=== PATIENT | male | born 1940 | race Caucasian/White ===

== ENCOUNTER 2017-05-22 04:22 | Inpatient (IN) | payer MEDICARE ==
[~2017-05-22] VITALS: Ht 175.3 cm; Wt 72.8 kg
[2017-05-22] VITALS (9 sets, daily range): BP systolic 123–148; BP diastolic 65–90; PULSE 70–95; RESP 16–21; TEMP 97.9–98.7; O2SAT 95–100
[~2017-05-22 04:22] MED LIST: ALBU8I INH; B-12500T3 PO; CALCCHW25 PO; CO Q PO; D32000CA PO; DOXA1 PO; GUAI1SOL PO; MIRA25TA PO; OXYC1SOL5 PO; PROT40TA PO; SPIRCAP INH; SYMB80AE INH; SYNT175T PO; TOLT1TAB PO
[2017-05-22] MEDS ORDERED: SODIUM CHLOR 0.9% 1000 ML INJ 1,000 ML IV SCH (04:28)
[2017-05-22] MEDS ORDERED: SODIUM CHLORIDE 0.9% FLUSH 10 ML FLUSH IV FLUSH PRN ×2 (04:30→08:30)
[2017-05-22] MEDS ORDERED: HYDR50TA94 PO (04:43)
[2017-05-22] MEDS ORDERED: METF500T PO (04:43)
[2017-05-22] MEDS ORDERED: BENZ1CAP54 PO (04:43)
[2017-05-22] MEDS ORDERED: LEVO125T4 PO (04:43)
[2017-05-22] MEDS ORDERED: ALLO300T2 PO (04:43)
--- NOTE | 2017-05-22 04:43 | PD ---
HPI Chief Complaint: altered mentation Time Seen by Provider: 04:28 Travel History International Travel<30 days: No Contact w/Intl Traveler<30days: No History of Present Illness HPI The patient is a 76 year old male who presents to the [facility] emergency department with a history of reportedly awakening his just prior to arrival with a coughing spell. She then noticed that he was confused. The patient seemed disoriented. She called ambulance services. Upon ambulance services arrival, the patient did appear to be confused he was attempting to eat this sheet and pull out his IV in route to this facility. He was repeatedly falling back to sleep during his evaluation and making incoherent statements. When he was awakened and able to make eye contact he does report that he was dreaming. He reports that he did take Ambien this evening prior to going to bed. He reports that he did have one beer this evening. The patient had no focal findings noted by ambulance services prior to arrival to suggest stroke. The patient was last seen normal prior to going to bed. Review of systems is limited in this patient as he is confused on arrival. He has difficulty staying awake to answer questions. The patient's arrived at his bedside and reports that he has over the last week had a cough with congestion. She reports that he has a history of COPD. He went to see his primary care physician at the [facility] and at that point, no specific treatment was recommended. His reports that over the last week he has had little to no appetite. He has also had intermittent nausea and vomiting. She denies him having any diarrhea. She reports that he does have a history of posttraumatic stress disorder and he may have taken a Xanax prior to going to bed due to the fireworks. [facility] Past Medical History Narrative Medical The patient's past medical history is obtained through the electronic medical record and further discussion with the patient's and consists of COPD, insomnia, anxiety and depression, history of arthritis, diabetes mellitus, posttraumatic stress disorder. Arthritis: Yes Asthma: No Autoimmune Disease: No Blood Disorders: No Anxiety: Yes Depression: Yes Heart Rhythm Problems: No Cancer: Yes (SKIN CA) Cardiovascular Problems: Yes High Cholesterol: No Chemotherapy: No Chest Pain: No Congestive Heart Failure: No COPD: Yes Cerebrovascular Accident: No Diabetes: Yes Diminished Hearing: No Endocrine: Yes (DIABETES--diet controlled Agent [place] induced ) Gastrointestinal Disorders: Yes GERD: Yes Genitourinary: Yes Hiatal Hernia: Yes Hypertension: Yes Immune Disorder: No Inguinal Hernia: Yes Kidney Stones: No Musculoskeletal: No Neurologic: Yes (tremors) Psychiatric: Yes (PTSD) Reproductive: No Respiratory: Yes (COPD) Migraines: No Pneumonia: Yes Radiation Therapy: No Renal Failure: No Seizures: No Sickle Cell Disease: No Sleep Apnea: No Thyroid Disease: Yes Ulcer: No Past Surgical History Narrative Surgical The patient's past surgical history is significant for a hernia repair 3, tonsil and adenoidectomy, vasectomy, cataract surgery. Abdominal Surgery: Yes (HERNIA) AICD: No Arteriovenous Shunt: No Cardiac Surgery: No Ear Surgery: No Endocrine Surgery: No Eye Surgery: Yes (CATARACTS) Genitourinary Surgery: Yes (vasectomy) Gynecologic Surgery: No Insulin Pump: No Joint Replacement: No Neurologic Surgery: No Oral Surgery: No Pacemaker: No Thoracic Surgery: No Tonsillectomy: Yes (T/A) Other Surgery: Yes (HERNIA REPAIR x 3, T&A, vasectomy,wisdom teeth extraction) Social History Alcohol Use: Yes (BEER A DAY ) Tobacco Use: No Substance Use: Yes (MARIJUANA) Allergies-Medications (Allergen,Severity, Reaction): Coded Allergies: chlorpromazine (Unverified Allergy, Unknown, 01/03/17) prochlorperazine (Unverified Allergy, Unknown, 01/03/17) Reported Meds & Prescriptions Reported Meds & Active Scripts Active Reported Breo Ellipta Inh (Fluticasone/Vilanterol) 100-25 Mcg/Act Inh 1 Puff INH DAILY Use daily at the same time. Incruse Ellipta Inh (Umeclidinium [place] Inh) 0.0625 Mg/Act Inh 62.5 Mcg INH DAILY Virtussin A-C Liq (Guaifenesin-Codeine Liq) 100-10 Mg/5 Ml Soln 5 Ml PO Q4H PRN Zolpidem (Zolpidem Tartrate) 10 Mg Tab 10 Mg PO HS PRN Promethazine (Promethazine HCl) 12.5 Mg Tab 25 Mg PO Q12HR PRN Doxazosin (Doxazosin Mesylate) 4 Mg Tab 4 Mg PO DAILY Myrbetriq (Mirabegron) 50 Mg Tab 50 Mg PO DAILY Pantoprazole (Pantoprazole Sodium) 40 Mg Tab 40 Mg PO DAILY Levothyroxine (Levothyroxine Sodium) 125 Mcg Tab 125 Mcg PO DAILY Hydroxyzine HCl 50 Mg Tab 50 Mg PO BID Benzonatate 100 Mg Cap 100 Mg PO TID PRN Allopurinol 300 Mg Tab 300 Mg PO DAILY Metformin (Metformin HCl) 500 Mg Tab 500 Mg PO BIDPC Review of Systems ROS Limitations: Poor Historian Except as stated in HPI: all other systems reviewed are Neg General / Constitutional: No: Fever Eyes: No: Visual changes HENT: Positive: Congestion, No: Headaches Cardiovascular: No: Chest Pain or Discomfort Respiratory: Positive: Cough, Shortness of Breath, Wheezing Gastrointestinal: Positive: Nausea, Vomiting, Loss of Appetite, No: Abdominal Pain Genitourinary: No: Dysuria Musculoskeletal: No: Pain Skin: No Rash Neurologic: Positive: Change in Mentation, No: Weakness, Focal Abnormalities, Slurred Speech, Sensory Disturbance Psychiatric: No: Depression Endocrine: No: Polydipsia Hematologic/Lymphatic: No: Easy Bruising Physical Exam Narrative General: The patient is a well-developed well-nourished male in no acute distress. Head and Neck exam: Head is normocephalic atraumatic. Eyes: EOMI, pupils are equal round and reactive to light. Nose: Midline septum with pink mucous membranes Mouth: Dentition unremarkable. Moist mucus membranes. Posterior oropharynx is not erythematous. No tonsillar hypertrophy. Uvula midline. Airway patent. Neck: No palpable lymphadenopathy. No nuchal rigidity. No thyromegaly. Cardiovascular: Regular rate and rhythm without murmurs, gallops, or rubs. Lungs: Clear to auscultation bilaterally. No wheezes, rhonchi, or rales. Abdomen: Soft, without tenderness to palpation in all 4 quadrants of the abdomen. No guarding, rebound, or rigidity. Normal bowel sounds are audible. No tenderness on palpation of McBurney's point. Extremities: No clubbing, cyanosis, or edema. 2+ pulses in all 4 extremities. No calf tenderness on palpation. Back: No spinous process tenderness to palpation. No costovertebral angle tenderness to palpation. Neurologic Exam: The patient has difficulty staying awake to follow commands, however with neurologic testing the patient appears to be having a conjugate gaze on examination. The patient has no facial asymmetry. The patient has strength that is 5 or 5 in all 4 extremities, intact sensation over all dermatomes. The patient is oriented to person and place, not time or situation. Skin Exam: No rash noted. Intact skin that is warm and dry. Data Data Last Documented VS Vital Signs Date Time Temp Pulse Resp B/P (MAP) Pulse Ox O2 Delivery O2 Flow Rate FiO2 05/22/17 06:30 92 16 148/90 (109) 97 Room Air 05/22/17 05:26 2.00 05/22/17 04:24 98.0 Orders Orders Electrocardiogram (05/22/17 04:28) Ammonia (05/22/17 04:28) Complete Blood Count With Diff (05/22/17 04:28) Comprehensive Metabolic Panel (05/22/17 04:28) Creatine Kinase (Cpk) (05/22/17 04:28) Prothrombin Time / Inr (Pt) (05/22/17 04:28) Act Partial Throm Time (Ptt) (05/22/17 04:28) Troponin I (05/22/17 04:28) Thyroid Stimulating Hormone (05/22/17 04:28) Urinalysis - C+S If Indicated (05/22/17 04:28) Ct Brain W/O Iv Contrast(Rout) (05/22/17 04:28) Blood Glucose (05/22/17 04:28) Ecg Monitoring (05/22/17 04:28) Iv Access Insert/Monitor (05/22/17 04:28) Oximetry (05/22/17 04:28) Sodium Chloride 0.9% Flush (Ns Flush) (05/22/17 04:30) Sodium Chlor 0.9% 1000 Ml Inj (Ns 1000 M (05/22/17 04:28) Drug Screen, Random Urine (05/22/17 04:28) Alcohol (Ethanol) (05/22/17 04:28) Chest, Single Ap (05/22/17 04:37) Lorazepam Inj (Ativan Inj) (05/22/17 05:15) Labs Laboratory Tests Test 05/22/17 04:50 White Blood Count 5.9 TH/MM3 Red Blood Count 3.95 MIL/MM3 Hemoglobin 13.2 GM/DL Hematocrit 37.4 % Mean Corpuscular Volume 94.6 FL Mean Corpuscular Hemoglobin 33.4 PG Mean Corpuscular Hemoglobin Concent 35.3 % Red Cell Distribution Width 14.0 % Platelet Count 159 TH/MM3 Mean Platelet Volume 8.3 FL Neutrophils (%) (Auto) 53.3 % Lymphocytes (%) (Auto) 34.0 % Monocytes (%) (Auto) 9.0 % Eosinophils (%) (Auto) 3.4 % Basophils (%) (Auto) 0.3 % Neutrophils # (Auto) 3.2 TH/MM3 Lymphocytes # (Auto) 2.0 TH/MM3 Monocytes # (Auto) 0.5 TH/MM3 Eosinophils # (Auto) 0.2 TH/MM3 Basophils # (Auto) 0.0 TH/MM3 CBC Comment DIFF FINAL Differential Comment Prothrombin Time 10.0 SEC Prothromb Time International Ratio 1.0 RATIO Activated Partial Thromboplast Time 21.8 SEC Blood Urea Nitrogen 18 MG/DL Creatinine 0.85 MG/DL Random Glucose 94 MG/DL Total Protein 6.7 GM/DL Albumin 3.3 GM/DL Calcium Level 8.6 MG/DL Alkaline Phosphatase 70 U/L Aspartate Amino Transf (AST/SGOT) 32 U/L Alanine Aminotransferase (ALT/SGPT) 23 U/L Total Bilirubin 0.4 MG/DL Sodium Level 138 MEQ/L Potassium Level 4.9 MEQ/L Chloride Level 104 MEQ/L Carbon Dioxide Level 23.1 MEQ/L Anion Gap 11 MEQ/L Estimat Glomerular Filtration Rate 88 ML/MIN Ammonia 19 MCMOL/L Total Creatine Kinase 142 U/L Troponin I LESS THAN 0.02 NG/ML Thyroid Stimulating Hormone 3rd Gen 0.826 uIU/ML Ethyl Alcohol Level 60 MG/DL MDM Medical Decision Making Medical Screen Exam Complete: Yes Emergency Medical Condition: Yes Medical Record Reviewed: Yes Interpretation(s) Last Impressions Chest X-Ray 05/22/17 0437 Signed Impressions: Service Date/Time: Monday, May 22, 2017 04:52 - CONCLUSION: No acute disease. Giles Larson Jr., MD Differential Diagnosis Confusion induced by medication, versus alcohol use, versus other substance use , versus intracranial abnormality, versus infection-induced encephalopathy, versus hepatic encephalopathy Narrative Course During the course of the patients emergency department visit, the patients history, examination, and differential diagnosis were reviewed with the patient. The patient was placed on a tobacco classer with oximetry and frequent blood pressure monitoring. The patient had IV access obtained and blood work sent for analysis. The patient had an ECG done on arrival that shows a sinus rhythm heart rate of 97, right bundle branch block, left anterior fascicular block, no acute ST segment elevation is noted, T waves are inverted in V2. QRS duration is 124 ms, QTc is 411 ms. The patient was initially provided normal saline IV fluids, Zofran 4 mg IV for nausea. The patient was agitated and picking at his bedding. The patient was unable to lie still for evaluation specifically for CT scan, therefore Ativan 0.5 was administered IV times one. The patients laboratory studies were reviewed and remarkable for a white count is 5.9, hemoglobin 13.2, platelets 159 with 9 monocytes, CMP is remarkable for a GFR of 88, ammonia level is 19, CPK 142, troponin I less than 0.02, albumin 3.3, TSH 0.826, PT 10, PTT 21.8, alcohol level is 60. Radiology studies were reviewed and remarkable for a chest x-ray that shows no acute cardiopulmonary disease, a CT scan of the brain shows atrophy with chronic small vessel ischemic changes. The patient will be admitted to the hospital for altered mentation and continued observation. I suspect that the patient's symptoms are related to medication side effects. The patient's sedative medications will be held while the patient is observed for improvement in his mentation. The patients results were discussed with the patient, including the plan of care. I explained that further testing and/ or monitoring is indicated based on the patients history, examination, and/ or laboratory findings. Therefore, I recommended admission for additional evaluation. The patient expressed understanding and was agreeable with this plan. The patient was admitted to the hospital in stable condition and sent to a bed under the care of the [facility] service. Physician Communication Physician Communication The patient's case including history, pertinent physical examination findings, and laboratory studies will be discussed with the [facility] service regarding admission. Diagnosis Primary Impression: Altered mental status Qualified Codes: R41.0 - Disorientation, unspecified Admitting Information Admitting Physician Requests: Observation Negra Balderrama MD May 22, 2017 04:43
[2017-05-22] MEDS ORDERED: UMEC1INH INH (04:48)
[2017-05-22] MEDS ORDERED: PANT40TA3 PO (04:48)
[2017-05-22] MEDS ORDERED: PROM12.54 PO (04:48)
[2017-05-22] MEDS ORDERED: GUAI1SOL7 PO (04:48)
[2017-05-22] MEDS ORDERED: FLUT1INH INH (04:48)
[2017-05-22] MEDS ORDERED: DOXA1TAB34 PO (04:48)
[2017-05-22] MEDS ORDERED: MIRA50TA PO (04:48)
[2017-05-22] MEDS ORDERED: ZOLP10TA3 PO (04:48)
--- NOTE | 2017-05-22 05:07 | RADRPT ---
EXAM DATE/TIME: 05/22/2017 04:52 [facility] COMPARISON: CHEST SINGLE AP, September 12, 2015, 16:47. INDICATIONS : Shortness of breath. MEDICAL HISTORY : Hypertension. Cardiovascular disease SURGICAL HISTORY : None. ENCOUNTER: Initial ACUITY: 1 day PAIN SCORE: Non-responsive. LOCATION: Bilateral chest FINDINGS: A single view of the chest demonstrates the lungs to be symmetrically aerated without evidence of mas s, infiltrate or effusion. The cardiomediastinal contours are unremarkable. Osseous structures are intact. CONCLUSION: No acute disease. Giles Larson Jr., MD on May 22, 2017 at 5:05 Board Certified Radiologist. This report was verified electronically.
[2017-05-22 05:11] LABS: AUTOMATED NEUTROPHIL # 3.2 TH/MM3 (1.8-7.7); BASOPHIL % 0.3 % (0.0-2.0); EOSINOPHIL # 0.2 TH/MM3 (0-0.4); EOSINOPHIL % 3.4 % (0.0-4.0); HEMATOCRIT 37.4 % (39.0-51.0); HEMOGLOBIN 13.2 GM/DL (13.0-17.0); MEAN CELL VOLUME 94.6 FL (80.0-100.0); MEAN CORPUSCULAR HEMOGLOBIN 33.4 PG (27.0-34.0); MEAN CORPUSCULAR HGB CONC 35.3 % (32.0-36.0); MEAN PLATELET VOLUME 8.3 FL (7.0-11.0); MONOCYTE # 0.5 TH/MM3 (0-0.9); NEUT % 53.3 % (16.0-70.0); PLATELET COUNT 159 TH/MM3 (150-450); RED BLOOD COUNT 3.95 MIL/MM3 (4.50-5.90); WHITE BLOOD COUNT 5.9 TH/MM3 (4.0-11.0)
[2017-05-22] MEDS ORDERED: LORazepam 2 MG/ML VIAL IV PUSH ONE (05:15)
[2017-05-22 05:43] LABS: ALBUMIN 3.3 GM/DL (3.4-5.0); ALKALINE PHOSPHATASE 70 U/L (45-117); ALT (GPT) 23 U/L (12-78); AST (GOT) 32 U/L (15-37); BICARBONATE 23.1 MEQ/L (21.0-32.0); BLOOD UREA NITROGEN 18 MG/DL (7-18); CALCIUM 8.6 MG/DL (8.5-10.1); CHLORIDE 104 MEQ/L (98-107); CREATININE 0.85 MG/DL (0.60-1.30); GLOMERULAR FILTRATION RATE 88 ML/MIN (>89); GLUCOSE,RANDOM 94 MG/DL (74-106); SODIUM (NA) 138 MEQ/L (136-145); TOTAL BILIRUBIN ADULT 0.4 MG/DL (0.2-1.0); TOTAL PROTEIN 6.7 GM/DL (6.4-8.2); TROPONIN I LESS THAN 0.02 NG/ML (0.02-0.05)
--- NOTE | 2017-05-22 06:11 | RADRPT ---
EXAM DATE/TIME: 05/22/2017 05:52 [facility] COMPARISON: CT BRAIN W/O CONTRAST, September 12, 2015, 18:22. INDICATIONS : Altered mental status. RADIATION DOSE: 56.35 CTDIvol (mGy) MEDICAL HISTORY : Non-responsive. SURGICAL HISTORY : Non-responsive. ENCOUNTER: Initial ACUITY: 1 day PAIN SCALE: Non-responsive LOCATION: cranial TECHNIQUE: Multiple contiguous axial images were obtained of the head. Using automated exposure control and adj ustment of the mA and/or kV according to patient size, radiation dose was kept as low as reasonably a chievable to obtain optimal diagnostic quality images. DICOM format image data is available electro nically for review and comparison. FINDINGS: CEREBRUM: Atrophy. Periventricular low attenuation change involving both cerebral hemispheres. Left basal gangl ia lacunar infarction. The ventricles are normal for age. No evidence of midline shift, mass lesion, hemorrhage or acute infarction. No extra-axial fluid collections are seen. POSTERIOR FOSSA: The cerebellum and brainstem are intact. The 4th ventricle is midline. The cerebellopontine angle i s unremarkable. EXTRACRANIAL: The visualized portion of the orbits is intact. SKULL: The calvaria is intact. No evidence of skull fracture. CONCLUSION: 1. No acute intracranial abnormality. 2. Atrophy and chronic small vessel ischemic change. Giles Larson Jr., MD on May 22, 2017 at 6:08 Board Certified Radiologist. This report was verified electronically.
[2017-05-22] MEDS ORDERED: MAGNESIUM HYDROXIDE SUSP 30 ML CUP PO PRN (08:30)
[2017-05-22] MEDS ORDERED: NALOXONE HCL 0.4 MG/ML AMP IV PUSH PRN (08:30)
[2017-05-22] MEDS ORDERED: ONDANSETRON HCL 4 MG/2 ML VIAL IVP PRN (08:30)
[2017-05-22 08:33] LABS: BILIRUBIN, URINE NEG (NEG); BLOOD, URINE NEG (NEG); GLUCOSE,URINE NEG (NEG); KETONE, URINE TRACE mg/dL (NEG); MUCUS URINE FEW /lpf (OCC); NITRITE,URINE NEG (NEG); URINE COLOR LIGHT-YELLOW (YELLW/STRAW); URINE LEUKOCYTE ESTERASE NEG (NEG)
[2017-05-22] MEDS: SODIUM CHLORIDE 0.9% FLUSH 10 ML FLUSH IV FLUSH SCH ×2 (09:00→21:18)
--- NOTE | 2017-05-22 09:01 | EKG ---
Date Performed: 05/22/2017 Time Performed: 05:12:21 PTAGE: 76 years EKG: Sinus rhythm RIGHT BUNDLE BRANCH BLOCK LEFT ANTERIOR FASCICULAR BLOCK ABNORMAL ECG No significant change from marita or electrocardiogram. PREVIOUS TRACING : 09/12/2015 16.57 DOCTOR: Mandeep Wallis Interpretating Date/Time 05/22/2017 09:00:41
--- NOTE | 2017-05-22 10:48 | HHI.HP ---
HPI Service [facility] Primary Care Physician [facility] Admission Diagnosis Altered mental status Diagnoses: Travel History International Travel<30 Days: No Contact w/Intl Traveler <30 Da: No Traveled to Known Affected Are: No History of Present Illness Mr. Wood is a 76-year-old male. He is brought into the hospital by his secondary to an acute change in mental status. She says last night he went to bed and awoke in the night with an acute coughing spell. He was acutely confused with his awakening and coughing and has remained so through the night and through the morning. She has no prior history of seizure. At baseline he does have posttraumatic stress disorder. Occasionally he will take Xanax for anxiety and sometimes uses Ambien to sleep. She is unaware if he had Xanax or Ambien prior to bed. She may have consumed about 1 beer last night. She reports that in the past she's had episodes of confusion but this was related to too many medications which were discontinued his mental status returned to prior baseline. At baseline he does not have confusion. Given the duration of his confusion without findings of pathological evidence on imaging a seizure could've occurred overnight and he could be post ictal. Review of Systems ROS Limitations: Altered Mental Status, Poor Historian Past Family Social History Past Medical History COPD Insomnia PTSD Gen. 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 Incruse Ellipta Inh (Umeclidinium Loving Inh) 0.0625 Mg/Act Inh 62.5 Mcg INH DAILY Virtussin A-C Liq (Guaifenesin-Codeine Liq) 100-10 Mg/5 Ml Soln 5 Ml PO Q4H PRN Zolpidem (Zolpidem Tartrate) 10 Mg Tab 10 Mg PO HS PRN Promethazine (Promethazine HCl) 12.5 Mg Tab 25 Mg PO Q12HR PRN Doxazosin (Doxazosin Mesylate) 4 Mg Tab 4 Mg PO DAILY Myrbetriq (Mirabegron) 50 Mg Tab 50 Mg PO DAILY Pantoprazole (Pantoprazole Sodium) 40 Mg Tab 40 Mg PO DAILY Levothyroxine (Levothyroxine Sodium) 125 Mcg Tab 125 Mcg PO DAILY Hydroxyzine HCl 50 Mg Tab 50 Mg PO BID Benzonatate 100 Mg Cap 100 Mg PO TID PRN Allopurinol 300 Mg Tab 300 Mg PO DAILY Metformin (Metformin HCl) 500 Mg Tab 500 Mg PO BIDPC Allergies: Coded Allergies: chlorpromazine (Unverified Allergy, Unknown, 01/03/17) prochlorperazine (Unverified Allergy, Unknown, 01/03/17) Family History Myocardial infarction in father Alzheimer's disease in mother Social History Occasional use of beer Occasional marijuana No other illicit drug abuse No smoking Physical Exam Vital Signs Vital Signs Date Time Temp Pulse Resp B/P (MAP) Pulse Ox O2 Delivery O2 Flow Rate FiO2 05/22/17 09:25 98.2 83 21 139/65 (89) 100 05/22/17 09:05 05/22/17 07:25 83 16 126/76 (93) 97 Room Air 05/22/17 06:30 92 16 148/90 (109) 97 Room Air 05/22/17 05:26 98 Nasal Cannula 2.00 05/22/17 04:24 98.0 95 18 133/90 (104) 95 Physical Exam GENERAL: NAD, A&Ox0, somnolent HEAD: Normocephalic. NECK: Supple, trachea midline. No lymphadenopathy. EYES: No scleral icterus. No injection or drainage. CARDIOVASCULAR: Regular rate and rhythm without murmurs, gallops, or rubs. RESPIRATORY: Breath sounds equal bilaterally. No accessory muscle use. GASTROINTESTINAL: Abdomen soft, non-tender, nondistended. MUSCULOSKELETAL: No cyanosis, or edema. SKIN: Warm and dry. NEURO: No focal neurological deficitis. Laboratory Laboratory Tests Test 05/22/17 04:50 05/22/17 08:19 White Blood Count 5.9 Red Blood Count 3.95 Hemoglobin 13.2 Hematocrit 37.4 Mean Corpuscular Volume 94.6 Mean Corpuscular Hemoglobin 33.4 Mean Corpuscular Hemoglobin Concent 35.3 Red Cell Distribution Width 14.0 Platelet Count 159 Mean Platelet Volume 8.3 Neutrophils (%) (Auto) 53.3 Lymphocytes (%) (Auto) 34.0 Monocytes (%) (Auto) 9.0 Eosinophils (%) (Auto) 3.4 Basophils (%) (Auto) 0.3 Neutrophils # (Auto) 3.2 Lymphocytes # (Auto) 2.0 Monocytes # (Auto) 0.5 Eosinophils # (Auto) 0.2 Basophils # (Auto) 0.0 CBC Comment DIFF FINAL Differential Comment Prothrombin Time 10.0 Prothromb Time International Ratio 1.0 Activated Partial Thromboplast Time 21.8 Blood Urea Nitrogen 18 Creatinine 0.85 Random Glucose 94 Total Protein 6.7 Albumin 3.3 Calcium Level 8.6 Alkaline Phosphatase 70 Aspartate Amino Transf (AST/SGOT) 32 Alanine Aminotransferase (ALT/SGPT) 23 Total Bilirubin 0.4 Sodium Level 138 Potassium Level 4.9 Chloride Level 104 Carbon Dioxide Level 23.1 Anion Gap 11 Estimat Glomerular Filtration Rate 88 Ammonia 19 Total Creatine Kinase 142 Troponin I LESS THAN 0.02 Vitamin B12 Level 389 Thyroid Stimulating Hormone 3rd Gen 0.826 Ethyl Alcohol Level 60 Urine Color LIGHT-YELLOW Urine Turbidity CLEAR Urine pH 5.0 Urine Specific [place] 1.007 Urine Protein NEG Urine Glucose (UA) NEG Urine Ketones TRACE Urine Occult Blood NEG Urine Nitrite NEG Urine Bilirubin NEG Urine Urobilinogen LESS THAN 2.0 Urine Leukocyte Esterase NEG Urine RBC 1 Urine WBC LESS THAN 1 Urine Mucus FEW Microscopic Urinalysis Comment CATH-CULT NOT IND Result Diagram: 05/22/1744905/22/17449 Caprini VTE Risk Assessment Caprini VTE Risk Assessment: No/Low Risk (score <= 1) Caprini Risk Assessment Model Point Value = 1 Point Value = 2 Point Value = 3 Point Value = 5 Age 41-60 Minor surgery BMI > 25 kg/m2 Swollen legs Varicose veins or History of unexplained or recurrent spontaneous Oral contraceptives or hormone replacement Sepsis (< 1 month) Serious lung disease, including pneumonia (< 1 month) Abnormal pulmonary function Acute myocardial infarction Congestive heart failure (< 1 month) History of inflammatory bowel disease Medical patient at bed rest Age 61-74 Arthroscopic surgery Major open surgery (> 45 min) Laparoscopic surgery (> 45 min) Malignancy Confined to bed (> 72 hours) Immobilizing plaster cast Central venous access Age >= 75 History of VTE Family history of VTE Factor V Leiden Prothrombin [id number] Lupus anticoagulant Anticardiolipin antibodies Elevated serum homocysteine Heparin-induced thrombocytopenia Other congenital or acquired thrombophilia Stroke (< 1 month) Elective arthroplasty Hip, pelvis, or leg fracture Acute spinal cord injury (< 1 month) Prophylaxis Regimen Total Risk Factor Score Risk Level Prophylaxis Regimen 0-1 Low Early ambulation 2 Moderate Order ONE of the following: *Sequential Compression Device (SCD) *Heparin 5000 units SQ BID 3-4 Higher Order ONE of the following medications: *Heparin 5000 units SQ TID *Enoxaparin/Lovenox 40 mg SQ daily (WT < 150 kg, CrCl > 30 mL/min) *Enoxaparin/Lovenox 30 mg SQ daily (WT < 150 kg, CrCl > 10-29 mL/min) *Enoxaparin/Lovenox 30 mg SQ BID (WT < 150 kg, CrCl > 30 mL/min) AND/OR *Sequential Compression Device (SCD) 5 or more Highest Order ONE of the following medications: *Heparin 5000 units SQ TID (Preferred with Epidurals) *Enoxaparin/Lovenox 40 mg SQ daily (WT < 150 kg, CrCl > 30 mL/min) *Enoxaparin/Lovenox 30 mg SQ daily (WT < 150 kg, CrCl > 10-29 mL/min) *Enoxaparin/Lovenox 30 mg SQ BID (WT < 150 kg, CrCl > 30 mL/min) AND *Sequential Compression Device (SCD) Assessment and Plan Problem List: (1) Seizure ICD Code: R56.9 - Unspecified convulsions (2) Altered mental status ICD Code: R41.82 - Altered mental status, unspecified Status: Acute Assessment and Plan 76-year-old male admitted secondary to altered mental status related to seizure versus syncope versus toxic encephalopathy seizure versus syncope versus toxic encephalopathy If he takes Ambien and Xanax at baseline and took these last night this could be contributory, however would've expected he has improvement in his mentation through the morning and this has not exhibited tachycardia. Obtain orthostatic blood pressure checks Evaluate carotid arteries EEG Neurology consult Follow with serial neurologic exams Seizure precautions COPD No exacerbation No change to present treatments Insomnia PTSD Gen. 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 In the case of services not specified as inpatient-only, they are appropriately provided as inpatient services in accordance with the 2-midnight benchmark. Estimated LOS (days): 3 days is the estimated time the patient will need to remain in the hospital, assuming treatment plan goals are met and no additional complications. Post-Hospital Plan: Home Problem Qualifiers (1) Altered mental status: Qualified Codes: R41.0 - Disorientation, unspecified Vini Coombs MD May 22, 2017 10:48
[2017-05-22] MEDS ORDERED: GLUCAGON 1 MG/ML VIAL OTHER PRN (11:00)
[2017-05-22] MEDS ORDERED: DEXTROSE 50% IN WATER 50 ML VIAL(D50) IV PUSH PRN (11:00)
[2017-05-22] MEDS: SODIUM CHLOR 0.9% 1000 ML INJ 1,000 ML IV SCH ×2 (11:46→21:19)
[2017-05-22] MEDS: TOLTERODINE TARTRATE 2 MG CAP LA PO SCH (12:00)
[2017-05-22] MEDS: INSULIN ASPART SUPPLEMENTAL SCALE SQ SCH ×3 (12:00→21:00)
[2017-05-22] MEDS ORDERED: FLUTICASONE 200 MCG/VILANTEROL 25 MCG INHALER INH ONE (15:15)
[2017-05-22] MEDS: FLUTICASONE 100 MCG/VILANTEROL 25 MCG INHALER INH SCH (15:40)
--- NOTE | 2017-05-22 15:53 | RADRPT ---
EXAM DATE/TIME: 05/22/2017 15:12 [facility] COMPARISON: No previous studies available for comparison. INDICATIONS : Syncope. MEDICAL HISTORY : Chronic obstructive pulmonary disease. Hypertension. Emphysema. Diabetes. Skin cancer. SURGICAL HISTORY : Tonsillectomy. Hernia repair. Vasectomy. ENCOUNTER: Initial ACUITY: 1 day PAIN SCORE: 0/10 LOCATION: Bilateral neck PEAK SYSTOLIC VELOCITIES (cm/sec): ICA/CCA RATIO: Right: 1.0 Left: 0.7 ICA: Right: 71 Left: 60 CCA: Right: 71 Left: 81 ECA: Right: 86 Left: 83 VERTEBRAL: Right: 54 antegrade Left: non visualized. Elevated flow velocities and ICA/CCA ratios have been found to correlate with increased degrees of vessel stenosis, calculated as percentage of diameter relative to a normal segment of distal ICA/CCA FINDINGS: Antegrade flow is seen within the right vertebral artery on the left side is not visualized. There is mild atherosclerotic plaquing at the origin of both ICAs without any significant stenosis. CONCLUSION: No evidence for hemodynamically significant stenosis and the left vertebral sharon ry may be hypoplastic not visualized. Jael Norris MD on May 22, 2017 at 15:50 Board Certified Radiologist. This report was verified electronically.
[2017-05-22] MEDS ORDERED: UMECLIDINIUM 62.5 MCG/VILANTEROL 25 MCG INHALER INH ONE (16:00)
--- NOTE | 2017-05-22 16:34 | MB ---
cc: ENRRIQUE WANG M.D. DATE OF CONSULTATION: 05/22/2017 DATE OF : 1940, 76 REASON FOR CONSULTATION: Possible seizure. HISTORY OF PRESENT ILLNESS: The patient is a pleasant 76-year-old man with a history of COPD, diabetes, heart disease, PTSD, came in because of acute change in mental status. His states that there may have been a facial droop as well as severe confusion and nonsensical speech, possible TIA. He went to bed normal and he woke up with a coughing spell and since then he was confused. He actually did not improve his mental state until about 10 or 11 o'clock today. He has no history of seizures. He has a history, as stated above, of PTSD, COPD, heart disease, diabetes. He occasionally uses Xanax and Ambien but did not use it yesterday as far as I know, and as far as the can tell me. He may have had a beer last night, not sure. PAST MEDICAL HISTORY: As stated. HOME MEDICATIONS: 1. Breo Ellipta. 2. Incruse Ellipta. 3. Virtussin. 4. Zolpoldem. 5. Promethazine. 6. Doxazosin 7. Myrbetriq. 8. Pantoprazole. 9. Synthroid 10. Hydroxyzine 11. Benzonatate. 12. Allopurinol 13. Metformin ALLERGIES: Chlorpromazine and prochlorperazine FAMILY HISTORY UT in the father, Alzheimer's in the mother. SOCIAL HISTORY Occasionally drinks beer, occasionally marijuana. No other illicit drugs. No smoking. PHYSICAL EXAMINATION: Vitals: Temperature is 97.9, pulse 78, respiratory rate 21. BP supine 147/73, sitting 155/75, standing 131/73, sating at 96% on two liters nasal cannula. Neck: Supple. Heart: Regular. General: He is awake, alert, oriented now, fluent. Neurologic: Pupils reactive, face symmetric. Tongue midline. Motor-ribeiro, he does have some tremor on [id number] but no dysmetria. No drift, no leg lag. Toes downgoing. DTRs 1+, gait is withheld. LABORATORY DATA: Reviewed. Toxicology screen, his ethanol level was 60. Chemistry: ammonia is 19, B12 389, TSH normal. CBC, hematocrit 37.4. IMAGING STUDIES Chest x-ray: No acute disease seen. CT head: No acute abnormalities only atrophy and small vessel disease. IMPRESSION Questionable seizure versus possible TIA causing change in mental status. RECOMMENDATIONS: Recommend getting an EEG, carotid ultrasound is being performed, start him on oral B12, 1000 mcg daily. Will also get an MRI/MRA and watch him from any withdrawal seizures from ETOH. Continue current care. If workup is negative, discharge planning with follow up with primary care and pulmonary. MD MEGHAN Wagner/RYAN /3:08 PM /4:04 PM
[2017-05-22] MEDS ORDERED: PROMETHAZINE HCL 25 MG TAB PO PRN (21:00)
[2017-05-22] MEDS: hydrOXYzine HCL 50 MG TAB PO SCH (21:16)
[2017-05-22] MEDS: PANTOPRAZOLE SOD 20 MG DELAYED RELEASE TAB PO SCH (21:17)
[2017-05-22] MEDS ORDERED: BENZONATATE 100 MG CAP PO PRN (23:15)
[2017-05-23] VITALS: BP 142/72; PULSE 67; PULSE 72; RESP 18; TEMP 98.9; O2SAT 100
[2017-05-23] MEDS ORDERED: diphenhydrAMINE HCL 25 MG CAP PO ONE (00:30)
[2017-05-23 04:00] VITALS: BP 137/73; PULSE 64; PULSE 66; RESP 18; TEMP 98.6; O2SAT 100
[2017-05-23] MEDS: SODIUM CHLOR 0.9% 1000 ML INJ 1,000 ML IV SCH (04:39)
[2017-05-23] MEDS ORDERED: LEVOTHYROXINE SODIUM 125 MCG TAB PO SCH (06:00)
[2017-05-23 06:56] LABS: AUTOMATED NEUTROPHIL # 3.6 TH/MM3 (1.8-7.7); BASOPHIL % 0.2 % (0.0-2.0); EOSINOPHIL # 0.2 TH/MM3 (0-0.4); EOSINOPHIL % 3.8 % (0.0-4.0); HEMATOCRIT 37.1 % (39.0-51.0); HEMOGLOBIN 12.9 GM/DL (13.0-17.0); LYMPH % 27.5 % (9.0-44.0); LYMPHOCYTE # 1.7 TH/MM3 (1.0-4.8); MEAN CELL VOLUME 92.9 FL (80.0-100.0); MEAN CORPUSCULAR HEMOGLOBIN 32.3 PG (27.0-34.0); MEAN CORPUSCULAR HGB CONC 34.8 % (32.0-36.0); MEAN PLATELET VOLUME 7.6 FL (7.0-11.0); MONO % 9.6 % (0.0-8.0); MONOCYTE # 0.6 TH/MM3 (0-0.9); NEUT % 58.9 % (16.0-70.0); PLATELET COUNT 149 TH/MM3 (150-450); RED BLOOD COUNT 3.99 MIL/MM3 (4.50-5.90); RED CELL DISTRIBUTION WIDTH 13.8 % (11.6-17.2); WHITE BLOOD COUNT 6.1 TH/MM3 (4.0-11.0)
[2017-05-23 07:29] LABS: ALBUMIN 3.5 GM/DL (3.4-5.0); ALKALINE PHOSPHATASE 75 U/L (45-117); ALT (GPT) 22 U/L (12-78); AST (GOT) 13 U/L (15-37); BICARBONATE 27.8 MEQ/L (21.0-32.0); BLOOD UREA NITROGEN 12 MG/DL (7-18); CALCIUM 8.6 MG/DL (8.5-10.1); CHLORIDE 109 MEQ/L (98-107); CREATININE 0.76 MG/DL (0.60-1.30); GLOMERULAR FILTRATION RATE 100 ML/MIN (>89); GLUCOSE,RANDOM 123 MG/DL (74-106); SODIUM (NA) 144 MEQ/L (136-145); TOTAL BILIRUBIN ADULT 0.6 MG/DL (0.2-1.0); TOTAL PROTEIN 6.3 GM/DL (6.4-8.2)
[2017-05-23 08:00] VITALS: BP 137/69; PULSE 70; RESP 19; TEMP 98.5; O2SAT 100
[2017-05-23] MEDS: INSULIN ASPART SUPPLEMENTAL SCALE SQ SCH ×2 (08:00→12:00)
--- NOTE | 2017-05-23 08:16 | HHI.PR ---
Subjective Remarks Patient is seen at the chair says he was walking with a cane he has also a wheelchair at home. He is back at his baseline. No tremors or seizures. He has generalized weakness but no motor deficit. No fever or chills no nausea or vomiting. Shortness of breath at baseline he has COPD but is not wheezing at this time. Seen by neurology Dr. Becker, recommends follow-up as outpatient if imaging are normal Objective Vitals Vital Signs Date Time Temp Pulse Resp B/P (MAP) Pulse Ox O2 Delivery O2 Flow Rate FiO2 05/23/17 08:00 98.5 70 19 137/69 (91) 100 05/23/17 04:00 98.6 66 18 137/73 (94) 100 05/23/17 04:00 64 05/23/17 00:00 72 05/23/17 00:00 98.9 67 18 142/72 (95) 100 05/22/17 23:09 78 05/22/17 20:00 98.1 70 18 148/71 (96) 100 05/22/17 19:29 98.7 78 18 128/73 (91) 98 05/22/17 15:55 98.1 92 20 123/70 (87) 95 05/22/17 12:28 97.9 78 21 147/73 (97) 96 155/75 (101) 131/73 (92) 05/22/17 09:25 98.2 83 21 139/65 (89) 100 05/22/17 09:05 I/O 05/22/17 05/22/17 05/22/17 05/23/17 05/23/17 05/23/17 07:00 15:00 23:00 07:00 15:00 23:00 Intake Total 1150 ml 178 ml Output Total 803 ml Balance 347 ml 178 ml Intake Oral 700 ml IV Total 450 ml 178 ml Output Urine Total 800 ml Stool Total 3 ml # Voids 4 # Bowel Movements 0 Result Diagram: 05/23/1763005/23/17630 Imaging Last Impressions Chest X-Ray 05/22/17 [id number] Signed Impressions: Service Date/Time: Monday, May 22, 2017 04:52 - CONCLUSION: No acute disease. Giles Larson Jr., MD Head CT 05/22/17 [id number] Signed Impressions: Service Date/Time: Monday, May 22, 2017 05:52 - CONCLUSION: 1. No acute intracranial abnormality. 2. Atrophy and chronic small vessel ischemic change. Giles Larson Jr., MD Carotid Artery Ultrasound 05/22/17 0000 Signed Impressions: Service Date/Time: Monday, May 22, 2017 15:12 - CONCLUSION: No evidence for hemodynamically significant stenosis and the left vertebral artery may be hypoplastic not visualized. Jael Norris MD Objective Remarks GENERAL: NAD, A&Ox0, somnolent SKIN: Warm and dry. CARDIOVASCULAR: Regular rate and rhythm without murmurs, gallops, or rubs. RESPIRATORY: Breath sounds equal bilaterally. No accessory muscle use. GASTROINTESTINAL: Abdomen soft, non-tender, nondistended. MUSCULOSKELETAL: No cyanosis, or edema. NEURO: No focal neurological deficits. CN 2-12 grossly normal. Normal speech. A/P Problem List: (1) Seizure ICD Code: R56.9 - Unspecified convulsions (2) Altered mental status ICD Code: R41.82 - Altered mental status, unspecified Status: Acute Assessment and Plan 76-year-old male admitted secondary to altered mental status related to seizure versus syncope versus toxic encephalopathy Seizure versus syncope versus toxic encephalopathy. 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 Discussed with the patient and family at bedside at length regarding taking his medications as his side effects as well as counseled regarding alcohol use. Patient expressed understanding. If he takes Ambien and Xanax at baseline and took these last night this could be contributory, however would've expected he has improvement in his mentation through the morning and this has not exhibited tachycardia. Obtain orthostatic blood pressure checks US carotid arteries reviewed and normal Neurology consult, appreciate recommendations. Start B12 as into a lower side. MRI/MRA reviewed and n acute preocess, also US carotids normal. Patient can be DC to follow up as op with neuro Follow with serial neurologic exams Seizure precautions B12 into a lower side. Start B12 supplement per neurology. COPD No exacerbation No change to present treatments Insomnia PTSD Gen. 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 Clear for discharge by neurology to follow up as outpatient with PCP and consultants. Discharge Planning Discharge home with home health in stable condition. To follow up as outpatient with PCP in consultants Diet diabetic diet and healthy heart diet Activity as tolerated ad sterling. Medications per medication reconciliation Problem Qualifiers (1) Altered mental status: Qualified Codes: R41.0 - Disorientation, unspecified Varsha Schmidt MD May 23, 2017 08:16
[2017-05-23 08:19] VITALS: PULSE 72
[2017-05-23] MEDS: FLUTICASONE 100 MCG/VILANTEROL 25 MCG INHALER INH SCH (08:28)
[2017-05-23] MEDS: hydrOXYzine HCL 50 MG TAB PO SCH (08:31)
[2017-05-23] MEDS: TOLTERODINE TARTRATE 2 MG CAP LA PO SCH (08:31)
[2017-05-23] MEDS: PANTOPRAZOLE SOD 20 MG DELAYED RELEASE TAB PO SCH (08:31)
[2017-05-23] MEDS ORDERED: DOXAZOSIN MESYLATE 4 MG TAB PO SCH (09:00)
[2017-05-23] MEDS ORDERED: NON-FORMULARY DRUG (Umeclidinium Bromide Inh (Incruse Ellipta Inh) 62.5 MCG) INH SCH (09:00)
[2017-05-23] MEDS ORDERED: ALLOPURINOL 300 MG TAB PO SCH (09:00)
[2017-05-23] MEDS ORDERED: TIOTROPIUM BROMIDE 18 MCG INH INH SCH (09:00)
[2017-05-23] MEDS ORDERED: PANTOPRAZOLE SOD 40 MG DELAYED RELEASE TAB PO SCH (09:00)
[2017-05-23] MEDS: SODIUM CHLORIDE 0.9% FLUSH 10 ML FLUSH IV FLUSH SCH (09:00)
[2017-05-23] MEDS ORDERED: UMECLIDINIUM 62.5 MCG/VILANTEROL 25 MCG INHALER INH SCH (09:00)
[2017-05-23] MEDS ORDERED: INFLUENZA VIRUS VACCINE (QUADRIVALENT) 0.5 ML SYR IM ONE (10:00)
--- NOTE | 2017-05-23 11:47 | RADRPT ---
EXAM DATE/TIME: 05/23/2017 10:08 [facility] COMPARISON: CT BRAIN W/O CONTRAST, May 22, 2017, 5:52. INDICATIONS : Seizures. TIA. Altered mental status. MEDICAL HISTORY : Chronic obstructive pulmonary disease. Diabetes mellitus type 2. Encephalopat hy. SURGICAL HISTORY : Umbilical hernia repair. Inguinal hernia repair. Cataracts. ENCOUNTER: Subsequent ACUITY: 2 day PAIN SCORE: 0/10 LOCATION: head. TECHNIQUE: Multiplanar, multisequence MRI of the brain was performed without contrast. FINDINGS: There is no evidence for intracranial hemorrhage, mass effect, mass lesions, edema, or extra-axial fl uid collections. There are no signs of acute infarction for technique. The diffusion portion, and po stcontrast portion are unremarkable. Slight degree of brain atrophy is seen. Slight periventricular w ethan matter changes are seen nonspecific mostly consistent with chronic small vessel ischemic changes . There is also old lacunar infarction on the left in the basal ganglia. CONCLUSION: Chronic atrophic and small vessel ischemic changes without any evidence for acute hemorrhage or mass effect. Jael Norris MD on May 23, 2017 at 11:43 Board Certified Radiologist. This report was verified electronically.
--- NOTE | 2017-05-23 11:48 | RADRPT ---
EXAM DATE/TIME: 05/23/2017 10:08 [facility] COMPARISON: No previous studies available for comparison. INDICATIONS : Seizures. TIA. Altered mental status. MEDICAL HISTORY : Diabetes mellitus type 2. Chronic obstructive pulmonary disease. Encephalopathy. SURGICAL HISTORY : Umbilical hernia repair. Inguinal hernia repair. Cataracts. ENCOUNTER: Subsequent ACUITY: 2 day PAIN SCORE: 0/10 LOCATION: head. Please note a normal MRA of the brain does not entirely exclude the possibility of a small aneurysm, nor the possibility of distal intracranial vessel disease. TECHNIQUE: 3D time of flight MRA was performed. Source images, multiplanar STS MIP, and 3D volume MIP reconstru ctions were reviewed. FINDINGS: There is excellent visualization of the major intracranial arteries out to the second-order branch ve ssels. There is no evidence for aneurysm, vessel truncation or stenosis, and no evidence for vascula r malformation. CONCLUSION: Unremarkable study. Jael Norris MD on May 23, 2017 at 11:45 Board Certified Radiologist. This report was verified electronically.
[2017-05-23 12:00] VITALS: BP 139/78; PULSE 77; RESP 18; TEMP 98.2; O2SAT 95
[2017-05-23] MEDS ORDERED: CYAN1TAB24 PO (13:51)
[2017-05-23] MEDS ORDERED: VITA100T54 PO (13:51)
--- NOTE | 2017-05-23 13:51 | HHI.DCPOC ---
Discharge Care Plan Goals to Promote Your Health * To prevent worsening of your condition and complications * To maintain your health at the optimal level Directions to Meet Your Goals Take your medications as prescribed Follow your dietary instruction Follow activity as directed Keep your appointments as scheduled Take your immunizations and boosters as scheduled If your symptoms worsen call your PCP, if no PCP go to Urgent Care Center or Emergency Room Smoking is Dangerous to Your Health. Avoid second hand smoke Call the 24-hour hour crisis hotline for domestic abuse at Varsha Schmidt MD May 23, 2017 13:51
--- NOTE | 2017-05-23 14:57 | HHI.FF ---
Face to Face Verification Diagnosis: (1) Toxic encephalopathy (2) Altered mental status (3) Weakness Physical Therapy Order: Evaluate and Treat Home Health Nursing Order: Medical education Signs/symptoms of disease process Medication education-adverse effect Nursing assessment with vital signs I have seen patient Alhaji Wood on 05/23/17. My clinical findings support the need for the requested home health care services because: Ltd mobility - disease progression Deconditioned w/ increased weakness I certify that my clinical findings support that this patient is homebound because: Post-op weakness Hx COPD- exertion dyspnea/weakness Unsteady gait/balance Varsha Schmidt MD May 23, 2017 14:56
--- NOTE | 2017-05-23 16:31 | MG ---
cc: SARA DUMONT Sex: M DATE OF STUDY: 05/23/2017 Test: TECHNIQUE 17 channel EEG. DESCRIPTION The background rhythm is a symmetrical alpha rhythm. Frequency 8-10 Hz, amplitude is 20-40 microvolts. No lateralizing features identified and no epileptiform features are seen. Photic stimulation results in a normal driving response. INTERPRETATION Normal EEG. MD SHEY Piedra/RYAN /3:37 PM /4:10 PM
== END 2017-05-23 16:26 | disposition home health service (06) | DRG 93 ==
LOC: NEPC 04:22 → NEDA 07:39 → NEPFCDU 09:20 → OBSVTOIN 09:21 → N05A 20:17
PROVIDERS: ADMIT Hospitalist; ATTEND Hospitalist
DX: G92 Toxic encephalopathy (principal); J44.9 Chronic obstructive pulmonary disease, unspecified; E09.9 Drug or chemical induced diabetes mellitus without complications; F32.9 Major depressive disorder, single episode, unspecified; T50.995A Adverse effect of other drugs, medicaments and biological substances, initial encounter; F43.10 Post-traumatic stress disorder, unspecified; G47.00 Insomnia, unspecified; I25.10 Atherosclerotic heart disease of native coronary artery without angina pectoris; M19.90 Unspecified osteoarthritis, unspecified site; R53.1 Weakness
CPT/HCPCS: 70450; 70544; 70551; 71045; 80053; 80307; 81001; 82140; 82550; 82607; 82948; 84443; 84484; 85025; 85610; 85730; 86592; 93005; 93880; 95819; 96361; 96374; J2060; J7030